=== PATIENT | female | born 1935 | race Two or more races ===

== ENCOUNTER 2022-05-21 17:52 | Inpatient (IN) | payer MEDICAID, OTHER ==
[~2022-05-21] VITALS: Ht 144.8 cm; Wt 66.7 kg
[2022-05-21] MEDS: SODIUM CHLORIDE 0.9% 1,000 ML IV SCH (03:25)
[2022-05-21 18:40] LABS: Basophils # (auto) 0 10 ^3/uL (0-0.2); Basophils % (auto) 0.4 % (0.0-2.0); Eosinophils # (auto) 0.2 10 ^3/uL (0-0.8); Eosinophils % (auto) 5.8 % (0.0-7.0); Hemoglobin 11.1 g/dL (12.2-16.2); Lymphocytes # (auto) 1.8 10 ^3/uL (0.4-5.4); Lymphocytes % (auto) 45.1 % (10.0-50.0); Mean Corpuscular Hemoglobin 31.5 pg (28.0-32.0); Mean Corpuscular Hgb Conc. 32.6 g/dL (32.0-36.0); Mean Corpuscular Volume 96.6 fL (80.0-100.0); Monocytes # (auto) 0.6 10 ^3/uL (0-1.3); Monocytes % (auto) 14.7 % (0.0-12.0); Neutrophils # (auto) 1.4 10 ^3/uL (1.6-8.6); Nucleated Red Blood Cells % 0.3 %; Red Blood Cells 3.52 10^6/uL (4.0-5.20); Red Cell Distribution Width 14.4 % (11.8-14.3); White Blood Cell 4.1 10^3/uL (4.4-10.8)
[2022-05-21 18:49] LABS: Albumin 3.9 g/dL (3.4-5.0); Calcium 8.9 mg/dL (8.5-10.1); Potassium 5.1 mmol/L (3.5-5.1)
[2022-05-21 18:52] LABS: Bilirubin, Total 0.5 mg/dL (0.2-1.0); INR 0.99 (0.9-1.15); Partial Thromboplastin Time 26.9 sec (24.6-33.4); Total Protein 7.6 g/dL (6.4-8.2)
[2022-05-21] MEDS ORDERED: ASPirin 81 mg TAB PO ONE (20:00)
[2022-05-21] MEDS ORDERED: NITROGLYCERIN 0.4 MG SL TAB SL PRN (21:30)
[2022-05-21] MEDS ORDERED: MORPHINE SULFATE INJ 2 MG/ml SYRG IV PRN (21:30)
[2022-05-21] MEDS ORDERED: ALBUTEROL SULF 2.5 MG/0.5ML(0.5%) NEB SOLN NEB PRN (21:30)
[2022-05-21] MEDS ORDERED: PANTOPRAZOLE 40 MG/10 ML VIAL INJ IV ONE (21:30)
[2022-05-21] MEDS ORDERED: ACETAMINOPHEN 325 MG TAB PO PRN (21:30)
[2022-05-21 21:59] LABS: Cholesterol 154 mg/dL (< 200)
[2022-05-21 22:01] LABS: HDL Cholesterol 47 mg/dL (40-59); LDL Cholesterol 104 mg/dL (< 100); Triglycerides 128 mg/dL (< 150)
[2022-05-22 01:37] VITALS: BP 152/57
[2022-05-22 02:50] VITALS: BP 136/52
[2022-05-22 05:00] VITALS: BP 125/48
[2022-05-22] MEDS ORDERED: PANTOPRAZOLE 40 MG/10 ML VIAL INJ IV ONE (06:00)
[2022-05-22 06:53] LABS: Basophils # (auto) 0 10 ^3/uL (0-0.2); Basophils % (auto) 0.3 % (0.0-2.0); Eosinophils # (auto) 0.2 10 ^3/uL (0-0.8); Eosinophils % (auto) 5.8 % (0.0-7.0); Hematocrit 30.7 % (36.0-46.0); Hemoglobin 10.3 g/dL (12.2-16.2); Lymphocytes # (auto) 1.5 10 ^3/uL (0.4-5.4); Lymphocytes % (auto) 35.8 % (10.0-50.0); Mean Corpuscular Hemoglobin 31.9 pg (28.0-32.0); Mean Corpuscular Hgb Conc. 33.4 g/dL (32.0-36.0); Mean Corpuscular Volume 95.6 fL (80.0-100.0); Monocytes # (auto) 0.4 10 ^3/uL (0-1.3); Monocytes % (auto) 10.3 % (0.0-12.0); Neutrophils # (auto) 2.1 10 ^3/uL (1.6-8.6); Neutrophils % (auto) 47.8 % (37.0-80.0); Red Blood Cells 3.21 10^6/uL (4.0-5.20); Red Cell Distribution Width 14.3 % (11.8-14.3); White Blood Cell 4.3 10^3/uL (4.4-10.8)
[2022-05-22 07:16] LABS: Albumin 3.4 g/dL (3.4-5.0); Calcium 8.7 mg/dL (8.5-10.1); Potassium 5.2 mmol/L (3.5-5.1)
[2022-05-22 07:23] LABS: BUN/Creatinine Ratio 22.5; Bilirubin, Total 0.6 mg/dL (0.2-1.0); Total Protein 6.7 g/dL (6.4-8.2)
[2022-05-22 09:00] VITALS: BP 128/52
[2022-05-22] MEDS: PANTOPRAZOLE 40 MG/10 ML VIAL INJ IV SCH (10:00)
[2022-05-22] MEDS: ENOXAPARIN SOD 40 MG/0.4 ML SYRINGE SC SCH (10:44)
[2022-05-22] MEDS: ASPirin 81 mg TAB PO SCH (10:44)
[2022-05-22 13:00] VITALS: BP 134/51
[2022-05-22] MEDS: SODIUM CHLORIDE 0.9% 1,000 ML IV SCH (14:11)
[2022-05-22 17:00] VITALS: BP 114/50
[2022-05-22] MEDS ORDERED: LOSA25TA38 PO (17:13)
[2022-05-22] MEDS ORDERED: LEVO88TA4 PO (17:13)
[2022-05-22] MEDS ORDERED: OMEP20TA PO (17:13)
[2022-05-23 05:00] VITALS: BP 107/70
[2022-05-23] MEDS: SODIUM CHLORIDE 0.9% 1,000 ML IV SCH ×2 (06:34→10:47)
[2022-05-23] MEDS ORDERED: LEVOTHYROXINE SODIUM 25 MCG TAB PO SCH (07:00)
[2022-05-23 08:00] VITALS: BP 123/60
[2022-05-23] MEDS: ENOXAPARIN SOD 40 MG/0.4 ML SYRINGE SC SCH (10:47)
[2022-05-23] MEDS: PANTOPRAZOLE 40 MG/10 ML VIAL INJ IV SCH (10:47)
[2022-05-23] MEDS: ASPirin 81 mg TAB PO SCH (10:47)
[2022-05-23 12:00] VITALS: BP 129/59
[2022-05-23] MEDS ORDERED: DEXT100S73 PO (12:57)
[2022-05-23] MEDS ORDERED: ALBUAER3 IN (12:57)
[2022-05-23] MEDS ORDERED: AZIT250T8 PO (12:57)
== END 2022-05-23 14:40 | disposition home or self-care (01) | DRG 190 ==
LOC: ER 17:55 → TELE 21:32 → TELE-EAST 23:56
PROVIDERS: ADMIT Nurse Practitioner Family; ATTEND Nurse Practitioner Family
DX: R07.9 Chest pain, unspecified (principal); I21.A1 Myocardial infarction type 2; D64.9 Anemia, unspecified; I10 Essential (primary) hypertension; Z20.822 Contact with and (suspected) exposure to COVID-19; Z82.49 Family history of ischemic heart disease and other diseases of the circulatory system
CPT/HCPCS: 36415; 71045; 80053; 80061; 83036; 83880; 84443; 84484; 85025; 85379; 85610; 85730; 87426; 87804; 93005; 93306; 96361; 96372; 96374; 96375; 99291; C9113; G0378